=== PATIENT | female | born 1975 | race Caucasian/White ===

== ENCOUNTER 2021-06-12 20:45 | Emergency (ER) | payer OTHER ==
[2021-06-12] MEDS ORDERED: ONDANSETRON ODT4 MG PO (22:55)
== END 2021-06-12 23:00 | disposition home or self-care (01) ==
LOC: FER 20:45
DX: S06.0X0A Concussion without loss of consciousness, initial encounter (principal); S00.93XA Contusion of unspecified part of head, initial encounter; F17.200 Nicotine dependence, unspecified, uncomplicated; Y08.02XA Assault by strike by baseball bat, initial encounter
CPT/HCPCS: 70450; 72125